=== PATIENT | female | born 1985 | race Two or more races ===

== ENCOUNTER 2020-08-11 14:48 | Emergency (ER) | payer OTHER ==
[~2020-08-11] VITALS: Ht 152.4 cm; Wt 44.5 kg
--- NOTE | 2020-08-11 16:52 | RAD ---
Examination: FINGER(S) LEFT History: Reason: 3rd finger pain after shut in a door / Spl. Instructions: / History: Comparison/Correlation: None Findings: 3 view examination left third digit was performed. This includes a PA view of the left hand which is limited due to slightly oblique positioning. Joint spaces are normal. No displaced fracture or bone destruction. No definite degenerative change. No radiopaque foreign body. Impression: No there are degenerative fracture or bone destruction. No suspicious process. Electronically signed by: Mitul Hernandez MD (08/11/2020 4:49 PM) [facility]
--- NOTE | 2020-08-11 17:03 | PHYS DOC ---
Past Medical History Past Medical History: No Pertinent History (LIZETH FRANZ APRN) Past Surgical History: No Surgical History (LIZETH FRANZ APRN) Smoking Status: Never Smoker Alcohol Use: None (LIZETH FRANZ APRN) General Adult EDM: Chief Complaint: FINGER INJURY HPI: HPI: Patient is a 34 year old female who presents to the emergency department with complaints of left third digit pain after accidentally shutting her finger in a door. Patient reports pain at the DIP of the left third digit. She currently rates the pain a 6 out of 10 on pain scale unless there is pressure applied or she moves her fingers and the pain is a 10 out of 10. (LIZETH FRANZ APRN) Review of Systems: Review of Systems: Constitutional: Denies fever or chills. [] Musculoskeletal: See HPI Integument: Denies rash. [] Neurologic: Denies focal weakness or sensory changes. [] Psychiatric: Denies depression or anxiety. [] (LIZETH FRANZ APRN) Heart Score: Risk Factors: Risk Factors: DM, Current or recent (<one month) smoker, HTN, HLP, family history of CAD, obesity. Risk Scores: Score 0 - 3: 2.5% MACE over next 6 weeks - Discharge Home Score 4 - 6: 20.3% MACE over next 6 weeks - Admit for Clinical Observation Score 7 - 10: 72.7% MACE over next 6 weeks - Early Invasive Strategies (LIZETH FRANZ APRN) Allergies: Allergies: Allergies Coded Allergies Type Severity Reaction Last Updated Verified No Known Drug Allergies 08/11/20 No (LIZETH FRANZ APRN) Physical Exam: PE: Constitutional: Well developed, well nourished, no acute distress, non-toxic appearance. [] HENT: Normocephalic, atraumatic, bilateral external ears normal, nose normal. [] Eyes: PERRLA, EOMI, conjunctiva normal, no discharge. [] Neck: Normal range of motion, no stridor. [] Cardiovascular:Heart rate regular rhythm Lungs & Thorax: Respirations even and unlabored, no retractions, no respiratory distress Skin: Warm, dry, no erythema, no rash; subungual hematoma noted to the left third digit at the base of the nailbed, no open wound, no drainage. [] Extremities: Third digit of left hand: Full extension and flexion, no obvious deformity, no cyanosis, ROM intact, no edema. [] Neurologic: Alert and oriented X 3, no focal deficits noted. [] Psychologic: Affect normal, judgement normal, mood normal. [] (LIZETH FRANZ APRN) Current Patient Data: Vital Signs: Vital Signs Date Time Temp Pulse Resp B/P (MAP) Pulse Ox O2 Delivery O2 Flow Rate FiO2 08/11/20 15:50 98.2 68 16 109/72 (84) 100 Room Air 98.2 08/11/20 15:39 98.0 (LIZETH FRANZ APRN) EKG: EKG: [] (LIZETH FRANZ APRN) Course & Med Decision Making: Course & Med Decision Making Pertinent Labs and Imaging studies reviewed. (See chart for details) [] (LIZETH FRANZ APRN) Course & Med Decision Making I have reviewed the PA/EDITOR IN CHIEF NEWSPAPER's note and Plan of Care. I was available for consultation as needed during the patient's visit in the emergency department. I agree with the clinical impression, plans and disposition. (BRANDI LOWE MD) Brittanieon Disclaimer: Barbara Disclaimer: This electronic medical record was generated, in whole or in part, using a voice recognition dictation system. (LIZETH FRANZ APRN) Departure Departure Impression: Primary Impression: Subungual hematoma of finger of left hand Qualified Codes: S60.10XA - Contusion of unspecified finger with damage to nail, initial encounter Disposition: 01 HOME, SELF-CARE Condition: STABLE Referrals: NO PCP (PCP) Patient Instructions: Subungual Hematoma, [id number] Additional Instructions: Tylenol or ibuprofen as needed for pain. Follow up with your primary care doctor if symptoms persist, return to the ER if symptoms worsen. Justicifation of Admission Dx: Justifications for Admission: Justification of Admission Dx: N/A (LIZETH FRANZ APRN) Nail Trepanation Nail Trepanation : Nail Trepanation Location: Third digit of left hand Method of Drainage: nail cauterized Sterile Dressing Applied: No Finger Splint: No Progress Minimal blood loss, site was cleansed with alcohol prior to Bovie use. Patient tolerated well (LIZETH FRANZ APRN) LIZETH FRANZ APRN Aug 11, 2020 17:03 BRANDI LOWE MD Aug 11, 2020 17:38
[2020-08-11 17:53] VITALS: BP 111/53
== END 2020-08-11 17:55 | disposition home or self-care (01) ==
LOC: ER 14:48
DX: S60.032A Contusion of left middle finger without damage to nail, initial encounter (principal); W23.0XXA Caught, crushed, jammed, or pinched between moving objects, initial encounter; Y93.89 Activity, other specified; Y92.89 Other specified places as the place of occurrence of the external cause; Y99.8 Other external cause status
CPT/HCPCS: 11740; 73140; 99284

== ENCOUNTER 2021-06-22 12:15 | Emergency (ER) | payer BC, OTHER ==
[~2021-06-22] VITALS: Ht 152.4 cm; Wt 42.2 kg
[2021-06-22] MEDS ORDERED: diphenhydrAMINE 50 MG/ML VIAL IVP ONE (14:15)
[2021-06-22] MEDS ORDERED: DEXAMETHASONE SOD PHOS 20 MG/5 ML VIAL. IV ONE (14:15)
[2021-06-22] MEDS ORDERED: IV NORMAL SALINE 1000ML BAG 1,000 ML IV ONE (14:15)
--- NOTE | 2021-06-22 15:34 | ED.ADGEN ---
Past Medical History Past Medical History: No Pertinent History Past Surgical History: No Surgical History Smoking Status: Never Smoker Alcohol Use: Occasionally General Adult EDM: Chief Complaint: SKIN PROBLEM HPI: HPI: Patient is a 35 year old female, accompanied by her family who is translating for her, who presents to the emergency department with complaints of itchy rash all over since yesterday. Patient denies any new medications or environmental exposures. She states that the rash started about 10 minutes after she drank passion fruit water for the first time. She denies any sore throat, fever, cough, nasal congestion, headache, nausea, vomiting, diarrhea, body aches, fatigue. Patient denies any shortness of breath, wheezing, chest pain, or loss of taste/smell. Patient denies any known exposure to COVID-19. She currently denies any pain. Review of Systems: Review of Systems: Complete ROS is negative unless otherwise noted in HPI. Current Medications: Current Medications Medications (Trade) Dose Ordered Sig/Aminta Start Time Stop Time Status Last Admin Dose Admin Dexamethasone Sodium Phosphate (Decadron) 10 mg 1X ONCE 06/22/21 14:15 06/22/21 14:16 DC 06/22/21 14:21 10 MG Diphenhydramine HCl (Benadryl) 25 mg 1X ONCE 06/22/21 14:15 06/22/21 14:16 DC 06/22/21 14:21 25 MG Sodium Chloride 1,000 ml @ 1,000 mls/hr 1X ONCE 06/22/21 14:15 06/22/21 15:14 DC 06/22/21 14:21 1,000 MLS/HR Allergies: Allergies: Allergies Coded Allergies Type Severity Reaction Last Updated Verified No Known Drug Allergies 08/11/20 No Physical Exam: PE: See Above Constitutional: Well developed, well nourished, no acute distress, non-toxic appearance. [] HENT: Normocephalic, atraumatic, bilateral external ears normal, nose normal. [] Eyes: PERRLA, EOMI, conjunctiva normal, no discharge, edema to upper eyelids bilaterally without purulent drainage or discharge [] Neck: Normal range of motion, no stridor. [] Cardiovascular:Heart rate regular rhythm Lungs & Thorax: Respirations even and unlabored, no retractions, no respiratory distress, lungs CTA Skin: Warm, dry; generalized erythemic welts consistent with hives/allergic reaction to face, trunk, abdomen, and extremities x4 Extremities: No cyanosis, ROM intact, no edema. [] Neurologic: Alert and oriented X 3, normal motor, normal sensory, no focal deficits noted. [] Psychologic: Affect normal, judgement normal, mood normal. [] Current Patient Data: Vital Signs: Vital Signs Date Time Temp Pulse Resp B/P (MAP) Pulse Ox O2 Delivery O2 Flow Rate FiO2 06/22/21 14:49 68 103/57 (72) 100 Room Air 06/22/21 13:26 98.1 17 98.1 EKG: EKG: [] Heart Score: C/O Chest Pain: No Radiology/Procedures: Radiology/Procedures: [] Course & Med Decision Making: Course & Med Decision Making Pertinent Labs and Imaging studies reviewed. (See chart for details) Patient presents emergency department for evaluation of rash and itching that began 10 minutes after drinking a new passion fruit drink yesterday. Physical exam is concerning for allergic urticaria. Patient was given a liter normal saline, 10 mg of IV Decadron, 25 mg of IV Benadryl. Her rash improved, patient reported feeling better. Patient was instructed to not drink this beverage again. May take Benadryl every 6 hours as needed. Prescription written for Medrol Dosepak to begin taking tomorrow. Recommended follow-up with primary care doctor 1 to 2 days, return to the ER if symptoms worsen or patient begins to have difficulty breathing.. Patient and her family verbalized an understanding of home care, medications, follow-up, and return to ED instructions and were in agreement with the plan of care. [] Dragon Disclaimer: Dragon Disclaimer: This electronic medical record was generated, in whole or in part, using a voice recognition dictation system. Departure Departure Impression: Primary Impression: Allergic urticaria Disposition: HOME / SELF CARE / HOMELESS Condition: STABLE Referrals: NO PCP (PCP) Patient Instructions: Hives, [id number] Additional Instructions: DO NOT drink that beverage again. May take Benadryl every 6 hours as needed. Fill prescription and begin taking as directed tomorrow. Recommended follow-up with primary care doctor 1 to 2 days, return to the ER if symptoms worsen or patient begins to have difficulty breathing.. [facility] [address] [place] [address] [facility] [address] [place] [address] [facility] [address] [facility] [place] [address] [facility] [address] [place] [address] [facility] [address] [place] [address] [address] [place] [address] [facility] [address] [place] [address] [facility] [address] [place] [address] [facility] [address] [place] [address] [facility] [address] [place] [address] Scripts Methylprednisolone (MEDROL) 4 Mg Tab.ds.pk 1 PKG PO UD for 6 Days, #1 PKG 0 Refills Prov: LIZETH FRANZ AUTOMATION OPERATOR 06/22/21 LIZETH FRANZ AUTOMATION OPERATOR Jun 22, 2021 15:34
[2021-06-22] MEDS ORDERED: METH4TAB2 PO (15:37)
[2021-06-22 16:49] VITALS: BP 107/52
[2021-06-23] MEDS ORDERED: DIPH25TA24 PO (18:58)
[2021-06-23] MEDS ORDERED: HYDR25TA PO (18:58)
[2021-06-23] MEDS ORDERED: FAMO10TA26 PO (18:58)
== END 2021-06-22 17:13 | disposition home or self-care (01) ==
LOC: ER 12:15
DX: L50.0 Allergic urticaria (principal)
CPT/HCPCS: 96361; 96374; 96375; 99285; J1100; J1200; J7030

== ENCOUNTER 2021-06-23 14:19 | Emergency (ER) | payer BC ==
[~2021-06-23] VITALS: Ht 154.9 cm; Wt 45.5 kg
[~2021-06-23 14:19] MED LIST: METH4TAB2 PO
[2021-06-23] MEDS ORDERED: FAMOTIDINE 20 MG TABLET. PO ONE (17:45)
[2021-06-23] MEDS ORDERED: diphenhydrAMINE HCL 25 MG CAPSULE PO ONE (17:45)
[2021-06-23] MEDS ORDERED: hydrOXYzine 25 MG TABLET PO PRN (17:45)
[2021-06-23] MEDS ORDERED: DIPH25TA24 PO (18:58)
[2021-06-23] MEDS ORDERED: HYDR25TA PO (18:58)
[2021-06-23] MEDS ORDERED: FAMO10TA26 PO (18:58)
--- NOTE | 2021-06-23 18:59 | PHYS DOC ---
Past Medical History Past Medical History: No Pertinent History Past Surgical History: No Surgical History Smoking Status: Never Smoker Alcohol Use: Occasionally General Adult EDM: Chief Complaint: ALLERGIC REACTION HPI: HPI: Patient is a 35 year old female presents to the emergency department reporting her return of hives and itching since yesterday. Patient states she was seen here yesterday for hives and skin itching, was giving medications that helped, was sent home with a Medrol Dosepak, took her medication as directed, states that her symptoms came back. Patient denies any shortness of breath, wheezing, chest pain, loss of taste or smell, denies any known exposure to the COVID-19 virus, denies any pains. Patient denies any sore throat, fever, cough, nasal congestion, headache, nausea, vomiting, diarrhea, body aches, or fatigue. Patient states that she was not given a prescription for Benadryl as she expected. Patient denies any other physical complaints or physical concerns. Review of Systems: Review of Systems: 14 body systems of review of systems have been reviewed. See HPI for pertinent positives and negative responses, otherwise all other systems are negative, nonpertinent or noncontributory. Constitutional: Negative except as outlined in HPI above. Skin: Negative except as outlined in HPI above. Eyes: Negative except as outlined in HPI above. HENT: Negative except as outlined in HPI above. Respiratory: Negative except as outlined in HPI above. Cardiovascular: Negative except as outlined in HPI above. GI: Negative except as outlined in HPI above. : Negative except as outlined in HPI above. Musculoskeletal: Negative except as outlined in HPI above. Integument: Negative except as outlined in HPI above. Neurologic: Negative except as outlined in HPI above. Endocrine: Negative except as outlined in HPI above. Lymphatic: Negative except as outlined in HPI above. Psychiatric: Negative except as outlined in HPI above. Heart Score: C/O Chest Pain: No Risk Factors: Risk Factors: DM, Current or recent (<one month) smoker, HTN, HLP, family history of CAD, obesity. Risk Scores: Score 0 - 3: 2.5% MACE over next 6 weeks - Discharge Home Score 4 - 6: 20.3% MACE over next 6 weeks - Admit for Clinical Observation Score 7 - 10: 72.7% MACE over next 6 weeks - Early Invasive Strategies Current Medications: Current Medications Medications (Trade) Dose Ordered Sig/Aminta Start Time Stop Time Status Last Admin Dose Admin Diphenhydramine HCl (Benadryl) 25 mg 1X ONCE 06/23/21 17:45 06/23/21 17:46 DC 06/23/21 18:10 25 MG Famotidine (Pepcid) 40 mg 1X ONCE 06/23/21 17:45 06/23/21 17:46 DC 06/23/21 18:09 40 MG Hydroxyzine HCl (Atarax) 25 mg PRN Q6HRS PRN 06/23/21 17:45 06/23/21 18:09 25 MG Allergies: Allergies: Allergies Coded Allergies Type Severity Reaction Last Updated Verified No Known Drug Allergies 08/11/20 No Physical Exam: PE: Constitutional: Well developed, well nourished, no acute distress, non-toxic appearance. 35-year-old female in no apparent distress. HENT: Normocephalic, atraumatic. No angioedema, patient speaking in normal voice tones, no lymphadenopathy of the head or neck. No drooling, no trismus. Eyes: Conjunctiva normal, no discharge. Neck: Normal range of motion, no stridor. Cardiovascular: No cyanosis appreciated, distal cap refill less than 2 seconds. Lungs & Thorax: Patient is in no respiratory distress, no audible adventitious lung sounds appreciated. Abdomen: Nontender, no abnormalities noted. Skin: Warm, dry, no erythema, has ongoing erythemic welts, skin is intact, raised, irregular borders with central clearing, to trunk, face, abdomen, extremities x4. Back: No tenderness, no deformities. Extremities: No tenderness, no cyanosis, no clubbing, ROM intact, no edema. Neurologic: Alert and oriented X 3, normal motor function, normal sensory function, no focal deficits noted. Psychologic: Affect normal, judgement normal, mood normal. Current Patient Data: Vital Signs: Vital Signs Date Time Temp Pulse Resp B/P (MAP) Pulse Ox O2 Delivery O2 Flow Rate FiO2 06/23/21 16:40 98.6 83 16 116/56 (70) 99 Room Air 98.6 EKG: EKG: [] Radiology/Procedures: Radiology/Procedures: [] Course & Med Decision Making: Course & Med Decision Making Pertinent Labs and Imaging studies reviewed. (See chart for details) 35-year-old female, vital signs reviewed, presents to the emergency department complaining of return of hives and itching. Reviewed patient's emergency department visit from yesterday, agree with ED providers examination, today's examination consistent with yesterday's presentation. 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 Patient did reveal during examination that she was taking a new medication, low vera control tablets, she had never taken these tablets before, on the third dose is when she broke out in hives, continue to take them today when she broke out in hives again. Discussed with patient stopping all home medications, patient states this is the only home medication she takes. Will give oral tablets of Benadryl, hydroxyzine, and Pepcid. After period of time will reevaluate patient. After period of time, patient hives resolved, discussed with patient to continue Benadryl and hydroxyzine tomorrow will prescribe. Discuss with the patient all findings and diagnostic testing as well as the need to follow-up with their primary care provider for further evaluation and treatment or return to the ED if any new or worsening symptoms. Strict return precautions were also discussed at length, the patient voiced understanding and agreement with the discharge planning. The patient was nontoxic in appearance, in no apparent distress, and hemodynamically stable at the time of disposition. Barbara Disclaimer: Barbara Disclaimer: This electronic medical record was generated, in whole or in part, using a voice recognition dictation system. Departure Departure Impression: Primary Impression: Allergic urticaria Disposition: HOME / SELF CARE / HOMELESS Condition: GOOD Referrals: NO PCP (PCP) Patient Instructions: Hives Additional Instructions: Do not take your low vera control pill anymore, follow-up with your primary care clinic doctor to have this medication changed soon. You may continue to take Benadryl and hydroxyzine for itching, continue your home medications of Medrol Dosepak that was prescribed to you yesterday until completed. Thank you for visiting our Emergency Department. It was a pleasure taking care of you today in the emergency department and we appreciate you trusting us with your care. If any additional problems come up don't hesitate to return to visit us. Please follow up with your primary care provider so they can plan additional care if needed and know about the problem that you had. If symptoms worsen come back to the Emergency Department. Any concerning symptoms that start such as chest pain, shortness of air, weakness or numbness on one side of the body, running high fevers or any other concerning symptoms return to the ER. EMERGENCY DEPARTMENT GENERAL DISCHARGE INSTRUCTIONS Thank you for coming to [facility] Emergency Department (ED) today and trusting us with you care. We trust that you had a positive experience in our Emergency Department. If you wish to speak to the department management, you may call the Director at [phone]. YOUR FOLLOW UP INSTRUCTIONS ARE FOLLOWS: 1. Do you have a private Doctor? If you do not have a private doctor, please ask for a resource list of physicians or clinics that may be able to assist you with follow up care. 2. The Emergency Physicain has interpreted your x-rays. The X-Ray specialist will also review them. If there is a change in the findings, you will be notified in 48 hours when at all possible. 3. A lab test or culture has been done, your results will be reviewed and you will be notified if you need a change in treatment. ADDITIONAL INSTRUCTIONS AND INFORMATION: 1. Your care today has been supervised by a physician who is specially trained in emergency care. Many problems require more than one evaluation for a complete diagnosis and treatment. We recommend that you schedule your follow up appointment as recommended to ensure complete treatment of you illness or injury. If you are unable to obtain follow up care and continue to have a problem, or if your condition worsens, we recommend that you return to the ED. 2. We are not able to safely determine your condition over the phone nor are we able to give sound medical advice over the phone. For these safety reasons, if you call for medical advice we will ask you to come to the ED for further evaluation. 3. If you have any questions regarding these discharge instructions please call the ED at [phone]. SAFETY INFORMATION: In the interest of safety, wellness, and injury prevention; we encourage you to wear your sealbelt, if you smoke; quite smoking, and we encourage family to use a protective helmet for bicycling and other sporting events that present an increased risk for head injury. IF YOUR SYMPTOMS WORSEN OR NEW SYMPTOMS DEVELOP, OR YOU HAVE CONCERNS ABOUT YOUR CONDITION; OR IF YOUR CONDITION WORSENS WHILE YOU ARE WAITING FOR YOUR FOLLOW UP APPOINTMENT; EITHER CONTACT YOUR PRIMARY CARE DOCTOR, THE PHYSICIAN WHOSE NAME AND NUMBER YOU WERE GIVEN, OR RETURN TO THE ED IMMEDIATELY. Scripts Famotidine (PEPCID AC) 10 Mg Tablet 10 MG PO BID for allergic reaction, #14 TAB 0 Refills Prov: ROSIBEL MENCHACA APRN 06/23/21 Diphenhydramine Hcl (DIPHENHYDRAMINE HCL) 25 Mg Tablet 1 TAB PO TID PRN PRN for itching, #15 TAB 0 Refills Prov: ROSIBEL MENCHACA APRN 06/23/21 Hydroxyzine Hcl (HYDROXYZINE HCL) 25 Mg Tablet 1 TAB PO TID for itching, #15 TAB 0 Refills Prov: ROSIBEL MENCHACA APRN 06/23/21 ROSIBEL MENCHACA APRN Jun 23, 2021 18:59
[2021-06-23 19:13] VITALS: BP 121/56
== END 2021-06-23 19:21 | disposition home or self-care (01) ==
LOC: ER 14:19
DX: L50.0 Allergic urticaria (principal)
CPT/HCPCS: 99284; Q0163